=== PATIENT | female | born 2000 | race Caucasian/White ===

== ENCOUNTER 2020-07-27 23:29 | Emergency (ER) | payer OTHER ==
[2020-07-27 23:51] VITALS: BP 141/93; PULSE 99; RESP 16; TEMP 98.1
--- NOTE | 2020-07-27 23:55 | ED ---
General Adult HPI - General Stated complaint: Chest Pain Time Seen by Provider: 07/27/20 23:38 Source: patient, RN notes reviewed Mode of arrival: ambulatory Limitations: no limitations - History of Present Illness Initial comments: 20-year-old female without any significant past medical history presents to the emergency room for a chief complaint of chest pain. Patient reports that for the past 5 years she has had chest pain on and off. She describes as a sharp pain in her chest that lasts 5-10 seconds. States that recently it has started to become more frequent. Patient denies pain radiating into her back neck or arm. Denies nausea or diaphoresis. Patient denies shortness of breath or pain with deep breathing.patient states she is planning to follow up with her primary care doctor in a few days for this as well however since it happened again today she wanted to be seen. Patient has no other complaints at this time including shortness of breath, abdominal pain, nausea or vomiting, headache, or visual changes. - Related Data Home Medications Medication Instructions Recorded Confirmed Methylphenidate HCl [Concerta] 27 mg PO DAILY 06/23/15 06/23/15 Previous Rx's Medication Instructions Recorded Ibuprofen [Motrin] 600 mg PO Q6HR PRN #20 tab 06/23/15 Allergies Allergy/AdvReac Type Severity Reaction Status Date / Time No Known Allergies Allergy Verified 06/23/15 15:50 Review of Systems ROS Statement: Those systems with pertinent positive or pertinent negative responses have been documented in the HPI. ROS Other: All systems not noted in ROS Statement are negative. Past Medical History Additional Past Medical History / Comment(s): hx fast rate two years ago History of Any Multi-Drug Resistant Organisms: None Reported Past Surgical History: Adenoidectomy, Tonsillectomy Past Psychological History: No Psychological Hx Reported Past Alcohol Use History: None Reported Past Drug Use History: None Reported General Exam Limitations: no limitations General appearance: alert Head exam: Present: atraumatic, normal inspection Eye exam: Present: normal appearance ENT exam: Present: normal exam, mucous membranes moist Neck exam: Present: normal inspection. Absent: full ROM Respiratory exam: Present: normal lung sounds bilaterally, chest wall tenderness (L sided anterior chest wall tenderness). Absent: respiratory distress Cardiovascular Exam: Present: regular rate, normal rhythm, normal heart sounds GI/Abdominal exam: Present: soft, normal bowel sounds. Absent: distended, tenderness, guarding, rebound, rigid Neurological exam: Present: alert Course Vital Signs 07/27/20 23:40 Temperature 98.1 F Pulse Rate 99 Respiratory 16 Rate Blood Pressure 141/93 O2 Sat by Pulse 97 Oximetry EKG Findings - EKG Comments: EKG Findings:: Normal sinus rhythm, ventricular rate 74, VA interval 134, QTC 390 Medical Decision Making - Medical Decision Making Vitals are stable. Patient is well appearing. She had sharp anterior chest pain lasting for seconds earlier today which has since resolved. Asymptomatic at this time. Patient does have anterior chest wall tenderness. This is atypical in nature as sharp pain lasting seconds. This is an intermittent for 5 years. EKG is nonischemic with normal sinus rhythm. Chest x-ray shows no acute process. It is atypical. It possibly related to the chest wall given she does have tenderness. She can follow up closely with her doctor. If she has worsening symptoms she is to return to the emergency room. Discussed with Dr Garcia Disposition Clinical Impression: Chest pain, atypical Disposition: HOME SELF-CARE Instructions (If sedation given, give patient instructions): Costochondritis (ED) Additional Instructions: Take Motrin and Tylenol for pain. Please follow-up with your doctor in one to 2 days. If you have any worsening symptoms return to the emergency room. Is patient prescribed a controlled substance at d/c from ED?: No Referrals: Marta Antoine MD [Primary Care Provider] - 1-2 days Time of Disposition: 00:10
--- NOTE | 2020-07-28 00:06 | XR ---
EXAMINATION TYPE: XR chest 2V DATE OF EXAM: 07/27/2020 COMPARISON: 06/23/2015 HISTORY: Chest pain TECHNIQUE: 2 views FINDINGS: Heart and mediastinum are normal. Lungs are clear. Diaphragm is normal. Bony thorax appears normal. IMPRESSION: Normal chest. No change.
== END 2020-07-28 00:15 | disposition home or self-care (01) ==
LOC: EC 23:29
DX: R07.89 Other chest pain (principal); Z90.89 Acquired absence of other organs
CPT/HCPCS: 71046; 93005; 99285

== ENCOUNTER 2020-07-29 10:05 | Emergency (ER) | payer OTHER ==
[2020-07-29 10:15] VITALS: RESP 18; TEMP 97.8
[2020-07-29 10:52] LABS: Appearance,Urine Cloudy (Clear); Bacteria,Urine Occasional /hpf; Bilirubin,Urine Negative (Negative); Blood,Urine Large (Negative); Color,Urine Light Red; Glucose,Urine (UA) Negative (Negative); Ketones,Urine Negative (Negative); Leukocyte Esterase,Urine Moderate (Negative); Mucus,Urine Few /hpf; Nitrite,Urine Negative (Negative); Protein,Urine 1+ (Negative); RBC,Urine >182 /hpf (0-5); Specific Gravity,Urine 1.023 (1.001-1.035); Squamous Epithelial Cell,Urine 5 /hpf (0-4); Urobilinogen,Urine <2.0 mg/dL (<2.0); WBC,Urine 48 /hpf (0-5)
[2020-07-29 11:05] LABS: Amphetamine Screen,Urine Not Detected (NotDetected); Barbiturate Screen,Urine Not Detected (NotDetected); Benzodiazepines Screen,Urine Not Detected (NotDetected); Cocaine Screen,Urine Not Detected (NotDetected); Methadone Screen, Urine Not Detected (NotDetected); Opiate Screen,Urine Not Detected (NotDetected); Oxycodone Screen, Urine Not Detected (NotDetected); Phencyclidine Screen,Urine Not Detected (NotDetected); Tricyclic Antidepressant,Urine Not Detected (NotDetected); Urn Cannabinoid Scrn Not Detected (NotDetected)
--- NOTE | 2020-07-29 11:06 | ED ---
Psych HPI - General Chief Complaint: Psychiatric Symptoms Stated Complaint: mental health Time Seen by Provider: 07/29/20 10:17 Source: patient Mode of arrival: ambulatory - History of Present Illness Initial Comments: 20 yo female presenting for cc of suicidal ideations with multiple plans. Patient states that she has had fleeting suicidal ideation for the past 6 years. She states she tried to cut her left wrist yesterday she states it was only superficial. Patient states she also had ideations of overdose patient states she had not attempted overdose. She denies any physical complaints at this time. Patient states she was seen by her primary care provider and sent here for suicidal ideation with plan. Patient states she is currently menstruating she states she has not been sleeping well she denies . Patient denies homicidal ideation. Pt is in no distress, cooperative upon arrival. - Related Data Home Medications Medication Instructions Recorded Confirmed Ibuprofen [Advil] 200 mg PO Q8HR PRN 07/29/20 07/29/20 Ibuprofen [Motrin Ib] 200 - 400 mg PO Q8H PRN 07/29/20 07/29/20 Allergies Allergy/AdvReac Type Severity Reaction Status Date / Time No Known Allergies Allergy Verified 07/29/20 10:49 Review of Systems ROS Statement: Those systems with pertinent positive or pertinent negative responses have been documented in the HPI. ROS Other: All systems not noted in ROS Statement are negative. Past Medical History Additional Past Medical History / Comment(s): hx fast rate two years ago History of Any Multi-Drug Resistant Organisms: None Reported Past Surgical History: Adenoidectomy, Tonsillectomy Past Psychological History: Anxiety, Depression Smoking Status: Never smoker Past Alcohol Use History: None Reported Past Drug Use History: None Reported General Exam - General Exam Comments Initial Comments: General: The patient is awake and alert, in no distress, and does not appear acutely ill. Eye: Pupils are equal, round and reactive to light, extra-ocular movements are intact. No nystagmus. There is normal conjunctiva bilaterally. No signs of icterus. Ears, nose, mouth and throat: There are moist mucous membranes and no oral lesions. Neck: The neck is supple, there is no tenderness or JVD. Cardiovascular: There is a regular rate and rhythm. No murmur, rub or gallop is appreciated. Respiratory: Lungs are clear to auscultation, respirations are non-labored, breath sounds are equal. No wheezes, stridor, rales, or rhonchi. Gastrointestinal: Soft, non-distended, non-tender abdomen without masses or organomegaly noted. There is no rebound or guarding present. Musculoskeletal: Normal ROM, no tenderness. Strength 5/5. Sensation intact. Pulses equal bilaterally 2+. Neurological: A&O x 3. CN II-XII intact, There are no obvious motor or sensory deficits. Coordination appears grossly intact. Speech is normal. Skin: Skin is warm and dry and no rashes. superficial abrasions to the left forearm one, 3 cm linear, one 2cm horizontal, distal forearm ventral aspect. Psychiatric: Cooperative, appropriate mood & affect, normal judgment. Limitations: no limitations Course Vital Signs 07/29/20 07/29/20 10:08 14:29 Temperature 97.8 F Pulse Rate 70 80 Respiratory 18 18 Rate Blood Pressure 116/80 116/70 O2 Sat by Pulse 98 98 Oximetry Medical Decision Making - Medical Decision Making Medically clear. no attempt at overdose. no more than superficial wrist lesions. pt evaluated by mobile crisis unit, as well as EPS. pt is agreeable to discharge with safety plan will be discharged in [facility] care who agreed to locking up guns/medications and other sharp objectinos. pt discharged appearing well. - Lab Data Lab Results 07/29/20 07/29/20 07/29/20 Range/Units 10:28 10:28 10:28 Urine Color Light Red Urine Appearance Cloudy H (Clear) Urine pH 5.0 (5.0-8.0) Ur Specific [place] 1.023 (1.001-1.035) Urine Protein 1+ H (Negative) Urine Glucose (UA) Negative (Negative) Urine Ketones Negative (Negative) Urine Blood Large H (Negative) Urine Nitrite Negative (Negative) Urine Bilirubin Negative (Negative) Urine Urobilinogen <2.0 (<2.0) mg/dL Ur Leukocyte Esterase Moderate H (Negative) Urine RBC >182 H (0-5) /hpf Urine WBC 48 H (0-5) /hpf Ur Squamous Epith Cells 5 H (0-4) /hpf Urine Bacteria Occasional H (None) /hpf Urine Mucus Few H (None) /hpf Urine HCG, Qual Not Detected (Not Detectd) Urine Opiates Screen Not Detected (NotDetected) Ur Oxycodone Screen Not Detected (NotDetected) Urine Methadone Screen Not Detected (NotDetected) Ur Propoxyphene Screen Not Detected (NotDetected) Ur Barbiturates Screen Not Detected (NotDetected) U Tricyclic Antidepress Not Detected (NotDetected) Ur Phencyclidine Scrn Not Detected (NotDetected) Ur Amphetamines Screen Not Detected (NotDetected) U Methamphetamines Scrn Not Detected (NotDetected) U Benzodiazepines Scrn Not Detected (NotDetected) Urine Cocaine Screen Not Detected (NotDetected) U Marijuana (THC) Screen Not Detected (NotDetected) Disposition Clinical Impression: Depression, Suicidal ideation, Fatty liver Disposition: HOME SELF-CARE Condition: Good Instructions (If sedation given, give patient instructions): Depression (ED), Suicide Prevention (ED) Additional Instructions: Please use medication as discussed. Please follow-up with family doctor in the next 2 days. Please return to emergency room if the symptoms increase or worsen or for any other concerns. Is patient prescribed a controlled substance at d/c from ED?: No Referrals: Marta Antoine MD [Primary Care Provider] - 1-2 days Time of Disposition: 14:24
[2020-07-29 14:30] VITALS: BP 116/70; PULSE 80
== END 2020-07-29 14:29 | disposition home or self-care (01) ==
LOC: EC 10:05
DX: F32.9 Major depressive disorder, single episode, unspecified (principal); R45.851 Suicidal ideations; K76.0 Fatty (change of) liver, not elsewhere classified
CPT/HCPCS: 80306; 81001; 81025; 82075; 99285

== ENCOUNTER 2020-08-19 00:45 | Inpatient (IN) | payer MEDICAID, OTHER ==
--- NOTE | 2020-08-19 01:34 | ED ---
General Adult HPI - General Chief complaint: Psychiatric Symptoms Stated complaint: Mental health Time Seen by Provider: 08/19/20 00:53 Source: patient, RN notes reviewed Mode of arrival: ambulatory Limitations: no limitations - History of Present Illness Initial comments: 20-year-old female presents to the emergency room for a chief complaint of suicidal thoughts. Patient reports that a few days ago she "still cared" but now does not care if she lives. States she is having thoughts of suicide. States that if she jumps in front of a train she believes there is a 75% chance that she will . Patient reports having cut her wrists in the past however denies any recent cutting. Patient reports she has had these thoughts before. Patient states that she is supposed to be seeing a doctor on the fifth to possibly start medications. Patient has no other complaints at this time including shortness of breath, chest pain, abdominal pain, nausea or vomiting, headache, or visual changes. - Related Data Home Medications Medication Instructions Recorded Confirmed Ibuprofen [Advil] 200 mg PO Q8HR PRN 07/29/20 07/29/20 Ibuprofen [Motrin Ib] 200 - 400 mg PO Q8H PRN 07/29/20 07/29/20 Allergies Allergy/AdvReac Type Severity Reaction Status Date / Time No Known Allergies Allergy Verified 08/19/20 00:52 Review of Systems ROS Statement: Those systems with pertinent positive or pertinent negative responses have been documented in the HPI. ROS Other: All systems not noted in ROS Statement are negative. Past Medical History Additional Past Medical History / Comment(s): hx fast rate two years ago History of Any Multi-Drug Resistant Organisms: None Reported Past Surgical History: Adenoidectomy, Tonsillectomy Past Psychological History: Anxiety, Depression Smoking Status: Never smoker Past Alcohol Use History: Occasional Past Drug Use History: None Reported General Exam Limitations: no limitations General appearance: alert, in no apparent distress Head exam: Present: atraumatic Eye exam: Present: normal appearance, PERRL, EOMI. Absent: scleral icterus, conjunctival injection ENT exam: Present: normal exam, mucous membranes moist Neck exam: Present: normal inspection, full ROM. Absent: tenderness Respiratory exam: Present: normal lung sounds bilaterally. Absent: respiratory distress, wheezes Cardiovascular Exam: Present: regular rate, normal rhythm, normal heart sounds GI/Abdominal exam: Present: soft, normal bowel sounds. Absent: distended, tenderness, guarding, rebound, rigid Psychiatric exam: Present: flat affect Course Vital Signs 08/19/20 00:48 Temperature 99.6 F Pulse Rate 87 Respiratory 18 Rate Blood Pressure 144/90 O2 Sat by Pulse 98 Oximetry Medical Decision Making - Medical Decision Making Patient medically cleared at 1:25 AM however EPS is not available until the morning for evaluation. Care signed out to Dr Garcia at 0300. Disposition Clinical Impression: Depression Referrals: Marta Antoine MD [Primary Care Provider] - 1-2 days
[2020-08-19 01:48] LABS: Appearance,Urine Cloudy (Clear); Bacteria,Urine Rare /hpf; Bilirubin,Urine Negative (Negative); Blood,Urine Negative (Negative); Color,Urine Yellow; Glucose,Urine (UA) Negative (Negative); Ketones,Urine Negative (Negative); Leukocyte Esterase,Urine Moderate (Negative); Mucus,Urine Rare /hpf; Nitrite,Urine Negative (Negative); PH, Urine 5.5 (5.0-8.0); Protein,Urine Negative (Negative); RBC,Urine 1 /hpf (0-5); Specific Gravity,Urine 1.024 (1.001-1.035); Squamous Epithelial Cell,Urine 7 /hpf (0-4); Urobilinogen,Urine <2.0 mg/dL (<2.0); WBC,Urine 5 /hpf (0-5)
[2020-08-19 01:50] LABS: Amphetamine Screen,Urine Not Detected (NotDetected); Barbiturate Screen,Urine Not Detected (NotDetected); Benzodiazepines Screen,Urine Not Detected (NotDetected); Cocaine Screen,Urine Not Detected (NotDetected); Methadone Screen, Urine Not Detected (NotDetected); Opiate Screen,Urine Not Detected (NotDetected); Oxycodone Screen, Urine Not Detected (NotDetected); Phencyclidine Screen,Urine Not Detected (NotDetected); Tricyclic Antidepressant,Urine Not Detected (NotDetected); Urn Cannabinoid Scrn Not Detected (NotDetected)
[2020-08-19] MEDS ORDERED: ACETAMINOPHEN TAB 325 MG TAB PO PRN (09:09)
[2020-08-19] MEDS ORDERED: LORazepam 1 MG TAB PO PRN (09:09)
[2020-08-19] MEDS ORDERED: MAG HYDROX/AL HYDROX/SIMETH 30 ML CUP PO PRN (09:09)
[2020-08-19] MEDS ORDERED: MAGNESIUM HYDROXIDE 2,400 MG/10 ML CUP PO PRN (09:09)
[2020-08-19] MEDS ORDERED: LORazepam 2 MG/ML INJ IM PRN (09:12)
[2020-08-19] MEDS ORDERED: HALOPERIDOL LACTATE 5 MG/ML 1 ML VIAL IM PRN (09:13)
[2020-08-19] MEDS ORDERED: haloperidoL 5 MG TAB PO PRN (09:13)
[2020-08-19] MEDS ORDERED: SERTRALINE 25 MG TAB PO STA (12:04)
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
[2020-08-19] MEDS ORDERED: IBUPROFEN 200 MG TAB PO PRN (14:37)
--- NOTE | 2020-08-19 15:58 | CONS ---
CONSULTATION DATE OF SERVICE: 08/19/2020 REASON FOR CONSULTATION: Advice regarding asthma and other medical issues, requested by Psychiatry. HISTORY OF PRESENT ILLNESS: This 20-year-old woman with a past medical history of intermittent bronchial asthma, history of anxiety and depression was admitted for psychiatric evaluation. There is no history of any fever, rigor or chills. No history of headache, loss of consciousness. The patient has some inhalers but does not use them on a regular basis at this time. After admission, UA was cloudy, showing some moderate leukocyte esterase. No chest pain. No palpitations. No fever. PAST MEDICAL HISTORY: History of anxiety, depression, history of intermittent bronchial asthma, adenoidectomy, tonsillectomy. ALLERGIES: NO KNOWN DRUG ALLERGIES. MEDICATIONS: Advil p.r.n. FAMILY HISTORY: No history of heart disease or strokes in the family. SOCIAL HISTORY: No history of smoking. No history of alcohol intake. REVIEW OF SYSTEMS: ENT: No diminished hearing. No diminished vision. CARDIOVASCULAR SYSTEM: No angina, palpitations. RESPIRATORY SYSTEM: As mentioned earlier. GI: No nausea, vomiting. : No dysuria or retention. NERVOUS SYSTEM: No numbness, weakness. ALLERGY/IMMUNOLOGY: No asthma, hayfever. MUSCULOSKELETAL: As mentioned earlier. HEMATOLOGY/ONCOLOGY: No history of anemia. ENDOCRINE: No history of diabetes, hypothyroidism. CONSTITUTIONAL: As mentioned earlier. DERMATOLOGY: Negative. RHEUMATOLOGY: Negative. PSYCHIATRY: As mentioned earlier. PHYSICAL EXAMINATION: Patient alert and oriented x3. Pulse 72, blood pressure 102/64, respirations 16, temperature 98.6, pulse ox 96% on room air. HEENT: Conjunctivae normal. NECK: No jugular venous distention. CARDIOVASCULAR SYSTEM: S1, S2 muffled. RESPIRATORY SYSTEM: Breath sounds diminished at the bases. No rhonchi. No crackles. ABDOMEN: Soft, non-tender. LEGS: No edema. No swelling. NERVOUS SYSTEM: No focal deficit. LABS: UA noted. ASSESSMENT: 1. Major depression, post-traumatic stress disorder. 2. History of chronic intermittent bronchial asthma. 3. Possible acute urinary tract infection, present on admission. 4. FULL CODE. RECOMMENDATIONS AND DISCUSSION: In this 20-year-old woman who presented with multiple medical issues, at this time I recommend to continue the current medications, continue symptomatic treatment. I recommend a short course of antibiotics. Otherwise closely follow with primary physician in the outpatient setting. Continue the rest of the medications. We will follow the patient closely with you. Thank you for letting us participate in the care of this patient. POONAM / MAYRAN: [id number] /
[2020-08-19] MEDS: SULFAMETHOX-TMP 800-160MG 1 EACH TAB PO SCH (21:37)
[2020-08-19] MEDS: PRAZOSIN 1 MG CAP PO SCH (21:38)
[2020-08-20 07:14] LABS: Basophils % (A) 0 %; Eosinophils # (A) 0.2 k/uL (0-0.7); Eosinophils % (A) 2 %; HCT 40.3 % (34.0-46.0); HGB 13.2 gm/dL (11.4-16.0); Lymphocytes # (A) 4.2 k/uL (1.0-4.8); Lymphocytes % (A) 41 %; MCH 28.7 pg (25.0-35.0); MCHC 32.8 g/dL (31.0-37.0); MCV 87.3 fL (80.0-100.0); Mean Platelet Volume 7.5; Monocytes # (A) 0.6 k/uL (0-1.0); Monocytes % (A) 6 %; Neutrophils # (A) 5.2 k/uL (1.3-7.7); Neutrophils % (A) 50 %; Platelet Count 245 k/uL (150-450); RBC 4.62 m/uL (3.80-5.40); WBC 10.4 k/uL (4.0-11.0)
[2020-08-20 07:27] LABS: ALT 11 U/L (4-34); AST 16 U/L (14-36); African American GFR (CKD) >90 (>60 ml/min/1.73 sqM); Albumin 3.9 g/dL (3.5-5.0); Alkaline Phosphatase 53 U/L (38-126); Anion Gap 8 mmol/L; Blood Urea Nitrogen 12 mg/dL (7-17); Calcium 9.1 mg/dL (8.4-10.2); Carbon Dioxide 24 mmol/L (22-30); Chloride 105 mmol/L (98-107); Cholesterol 147 mg/dL (<200); Glucose 87 mg/dL (74-99); HDL Cholesterol 46 mg/dL (40-60); LDL Cholesterol,Calculated 83 mg/dL (0-99); Non-African American GFR(CKD) 88 (>60 ml/min/1.73 sqM); Potassium 4.1 mmol/L (3.5-5.1); Sodium 137 mmol/L (137-145); Total Bilirubin 0.8 mg/dL (0.2-1.3); Total Protein 6.8 g/dL (6.3-8.2); Triglycerides 88 mg/dL (<150)
[2020-08-20] MEDS: SULFAMETHOX-TMP 800-160MG 1 EACH TAB PO SCH ×2 (08:09→20:51)
[2020-08-20] MEDS ORDERED: SERTRALINE 50 MG TAB PO SCH (09:00)
--- NOTE | 2020-08-20 10:19 | P.PN ---
Progress Note - Text Progress Note Date: 08/20/20 Interval History: Patient was seen resting in bed and was directable and agreeable to speak with chief writer in the office. Patient reports that she is feeling a little better. She states that she remains primarily has limited her room but is planning to attend groups today. She is currently not reporting any suicidal or homicidal ideation, intention, and/or plan. She states that she is mainly preoccupied with feelings of guilt especially in relation to a male friend of hers. She is denying any self harming urges. She is not reporting any paranoia or delusions at this time. She denies any auditory or visual hallucinations. She does report that she had some mild nausea yesterday. She is currently prescribed antibiotics for treatment of a urinary tract infection. She is otherwise tolerating her prazosin and Zoloft well. She does report she had a nightmare last night but does not attribute this nightmare to any for previous trauma. Mental Status Exam: General Appearance: Patient appears to be stated age is alert, directable, and cooperative. Patient is wearing a tie-dyed T-shirt. Shoulder length brown hair. Behavior: Patient is calmly seated without any agitated behavior. Eye contact is fair today. Psychomotor activity is normal. Speech: Patient's speech is fluent and nonpressured. Monotone. Mood/Affect: Mood is improving mildly, affect is congruent and constricted. Suicidality/Homicidality: Patient denies having any suicidal or homicidal norberto ation intent or plan. Perceptions: Patient denies any visual hallucinations and denies any auditory hallucinations Though content/process: There is no evidence of any delusional thought content and thought process is linear and goal-directed. Memory and concentration: AOX3, grossly intact for the purposes of this session Judgment and insight: Improving mildly Assessment Major depressive disorder, recurrent, severe Posttraumatic stress disorder Plan: -Patient continues to meet criteria for inpatient psychiatric admission for symptom stabilization and safety. Patient has signed adult voluntary form and medication consent and was placed in patient's chart. -Medications: We'll increase Zoloft to 75 mg by mouth daily for depression/PTSD/anxiety Continue prazosin 1 mg by mouth at bedtime for PTSD related nightmares -When necessary Ativan and Haldol for agitation/aggression. -SW on board for discharge planning. Encouraged the patient to participate in milieu. -Anticipate discharge in 1-2 days.
[2020-08-20 15:00] LABS: Hemoglobin A1C 5.1 % (4.0-6.0)
[2020-08-20 15:21] VITALS: BMI 24.5
[2020-08-20] MEDS: PRAZOSIN 1 MG CAP PO SCH (20:51)
[2020-08-21 07:04] VITALS: BP 114/66; PULSE 89; RESP 16
[2020-08-21] MEDS: SULFAMETHOX-TMP 800-160MG 1 EACH TAB PO SCH (08:41)
[2020-08-21] MEDS ORDERED: SERTRALINE 25 MG TAB PO SCH (09:00)
[2020-08-21 09:47] VITALS: TEMP 98.5
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
== END 2020-08-21 15:30 | disposition home or self-care (01) | DRG 885 ==
LOC: EC 00:45 → 3MHU 09:02
PROVIDERS: ADMIT Psychiatry & Neurology Psychiatry; ATTEND Psychiatry & Neurology Psychiatry
DX: F33.2 Major depressive disorder, recurrent severe without psychotic features (principal); N39.0 Urinary tract infection, site not specified; Z20.822 Contact with and (suspected) exposure to COVID-19; F22 Delusional disorders; F43.10 Post-traumatic stress disorder, unspecified; F90.9 Attention-deficit hyperactivity disorder, unspecified type; J45.909 Unspecified asthma, uncomplicated; F41.9 Anxiety disorder, unspecified; Z98.890 Other specified postprocedural states; Z91.5 Personal history of self-harm; Z81.8 Family history of other mental and behavioral disorders
CPT/HCPCS: 80053; 80061; 80306; 81001; 81025; 82075; 83036; 84443; 85025; 87635; 99285

== ENCOUNTER → 2022-10-20 | Outpatient (CLI) | payer OTHER ==
--- NOTE | 2022-10-20 12:03 | XR ---
EXAMINATION TYPE: XR abdomen acute w cxr DATE OF EXAM: 10/20/2022 COMPARISON: NONE HISTORY: 22-year-old female R10.11, right upper quadrant pain FINDINGS: Frontal view of the chest shows normal heart size, aorta, and pulmonary vasculature. No con solidation or pleural effusion. No evidence for free intraperitoneal air. No dilated small bowel or air-fluid levels. There is mild scattered stool with air extending distally to the rectum. No suspicious calcifications. IMPRESSION: No acute cardiopulmonary process. No evidence for free air or bowel obstruction.
== END | disposition home or self-care (01) ==
LOC: RADXRMAIN 11:38
PROVIDERS: ATTEND Family Medicine
DX: R10.11 Right upper quadrant pain (principal)
CPT/HCPCS: 74022

== ENCOUNTER → 2022-10-21 | Outpatient (CLI) | payer OTHER ==
[2022-10-21 20:15] LABS: Basophils # (A) 0.03 X 10*3/uL (0.00-0.10); Basophils % (A) 0.3 %; Eosinophils # (A) 0.37 X 10*3/uL (0.04-0.35); Eosinophils % (A) 3.3 %; HCT 41.8 % (37.2-46.3); HGB 13.6 g/dL (12.0-15.0); Immature Grans, Automated 0.4 %; Lymphocytes # (A) 3.44 X 10*3/uL (0.90-5.00); MCH 28.8 pg (27.0-32.0); MCHC 32.5 g/dL (32.0-37.0); MCV 88.4 fL (80.0-97.0); Mean Platelet Volume 10.4 fL (9.5-12.2); Monocytes # (A) 0.85 X 10*3/uL (0.20-1.00); Monocytes % (A) 7.7 %; NRBC Per 100 WBC 0 /100 WBCS (0.0-0.0); Neutrophils # (A) 6.38 X 10*3/uL (1.80-7.70); Neutrophils % (A) 57.3 %; Platelet Count 331 X 10*3/uL (140-440); RBC 4.73 X 10*6/uL (4.10-5.20); RDW 12.1 % (11.5-14.5); WBC 11.11 X 10*3/uL (4.50-10.00)
[2022-10-21 20:21] LABS: Albumin 4.5 g/dL (3.8-4.9); Albumin/Globulin Ratio 1.44 (1.60-3.17); Anion Gap 10.5 mmol/L (10.00-18.00); BUN/Creat Ratio 16.49 Ratio (12.00-20.00); Blood Urea Nitrogen 12.7 mg/dL (9.0-27.0); Calcium 9.4 mg/dL (8.7-10.3); Carbon Dioxide 22.9 mmol/L (20.0-27.5); Globulin 3.1 g/dL (1.6-3.3); Non-African American GFR(CKD) 109.6 (60.0-200.0); Potassium 4.2 mmol/L (3.5-5.5); Total Bilirubin 0.4 mg/dL (0.30-1.20); Total Protein 7.6 g/dL (6.2-8.2)
== END | disposition home or self-care (01) ==
LOC: LABWHC1 13:35
PROVIDERS: ATTEND Family Medicine
DX: R10.11 Right upper quadrant pain (principal)
CPT/HCPCS: 36415; 80053; 82150; 83690; 85025